=== PATIENT | female | born 1980 | race Caucasian/White ===

== ENCOUNTER 2016-07-12 11:11 | Emergency (ER) | payer BC ==
[~2016-07-12] VITALS: Ht 162.6 cm; Wt 72.7 kg
[~2016-07-12 11:11] MED LIST: AEROSOL THERAPY1 DEV INH; ALBUTEROL0.83 MG/ML IH; ALPRAZOLAM; AMBIEN 5MG TABLE5 MG PO; AMOXICILLIN 50500 MG PO; AUGMENTIN 875 M1 TAB PO; BACTRIM DS 8001 TAB PO; BACTROBAN 22GM22 GM NAS; BENADRYL25 M2 PO; BENTYL 20MG20 MG/TAB PO; BLOOD PRESSURE MED; CARAFATE 1GM1 G PO; CARAFATE S1 GM/10 ML PO; CATAPRES 0.1MG0.1 MG PO; CEPHALEXIN500 M1 PO; CLEOCIN HC150 MG/CAP PO; CLINDAMYCIN300 MG PO; COLACE 100100 MG/CAP PO; DEPO PROVER150 MG/ML IM; DEPO-ESTRADIO5 MG/ML IM; DEPO-PROVER150 MG/M1 IM; DIFLUCAN150 MG PO; FLEXERIL 1010 MG/TAB PO; FLEXERIL10 MG PO; GLUCOPHAGE500 MG/TAB PO; HCTZ 25MG25 MG PO; HYDROCODONE/APAP; IBUPROFEN600 MG PO; INDERAL 10MG10 MG PO; INDERAL 20MG20 MG PO; INDERAL40 MG PO; KLONOPIN 0.5MG0.5 MG PO; LOPRESSOR 225 MG/TAB PO; LORTAB 5/500 501 TAB PO; LORTAB 7.5/5001 TAB PO; MECLIZINE25 MG PO; METHAZOLAMIDE25 MG PO; MIRALAX PA17 GM/Dose PO; MOTRIN 800800 MG/TAB; MOTRIN800 MG PO; NAPROSYN375 MG PO; NAPROSYN500 MG PO; NO HOME MEDICATIONS; NORCO 325 MG-101 TAB PO; NORCO 325 MG-51 TAB PO; NORCO 325 MG-7.1 TAB PO; NORFLEX100 MG PO; PEN-VEE K500 MG PO; PEPCID 20MG TAB20 MG PO; PERCOCET 325 MG1 TA2 PO; PERCOCET 5/321 UDTAB PO; PHENERGAN 25 TA25 MG PO; PHENERGAN W/CO120 M1 PO; PHENERGAN W/CO120 ML PO; PHENERGAN25 MG RC; PREDNISONE10 MG; PREDNISONE10 MG PO; PREDNISONE20 MG PO; PRILOSEC 20MG20 MG PO; PRILOTC PO; PRINIVIL10 MG PO; PROZAC 10MG10 MG PO; PROZAC40 MG PO; SAPHRIS5 MG SL; SYNTHROID 0.10.15 MG PO; SYNTHROID0.125 MG/T PO; SYNTHROID0.175 MG PO; TAPAZOLE10 MG PO; TOPROL XL 25MG25 MG PO; TOPROL XL 50MG50 MG PO; TRAZODONE HCL50 MG PO; TUMS500 MG PO; TYLENOL #3 301 UDTAB PO; ULTRAM 50MG TAB50 MG PO; UNKNOWN B/P MED; VENTOLIN0.09 MG IH; XANAX 0.5MG0.5 MG PO; XANAX 1MG1 MG PO; XANAX0.5 MG PO; ZESTRIL 10MG10 MG PO; ZITHROMAX 250M250 MG PO; ZITHROMAX500 M2; ZOFRAN 4MG T4 MG/TAB PO; ZOFRAN ODT4 MG PO; ZOLOFT 50MG50 MG PO; [UNRECOGNIZED DRUG - REMARK]
[2016-07-12 11:17] VITALS: BP 169/104; TEMP 99.4
[2016-07-12 11:57] LABS: INFLUENZA B NEGATIVE
[2016-07-12 12:45] VITALS: PULSE 106
== END 2016-07-12 12:55 | disposition home or self-care (01) ==
LOC: COL.ER 11:11
PROVIDERS: Nurse Practitioner
DX: R53.81 Other malaise (principal); R53.83 Other fatigue; B34.9 Viral infection, unspecified; I10 Essential (primary) hypertension; F17.210 Nicotine dependence, cigarettes, uncomplicated; E03.9 Hypothyroidism, unspecified
CPT/HCPCS: J1885; J2360

== ENCOUNTER 2016-10-09 06:25 | Emergency (ER) | payer BC ==
[~2016-10-09] VITALS: Ht 162.6 cm; Wt 72.7 kg
[2016-10-09 06:36] VITALS: TEMP 98
[2016-10-09] MEDS ORDERED: NORCO 325 MG-51 TAB PO (06:40)
[2016-10-09] MEDS ORDERED: TURMERIC500 MG PO (06:40)
[2016-10-09] MEDS ORDERED: ZOFRAN8 MG PO (07:27)
[2016-10-09 08:08] LABS: ADJUSTED CALCIUM 8.3 mg/dL (8.4-10.2); ALBUMIN 4.2 gm/dL (3.5-5.0); BILIRUBIN,TOTAL 0.8 mg/dL (0.0-1.0); CALCIUM 8.5 mg/dL (8.4-10.2); CREATININE, serum 0.66 mg/dL (0.52-1.25); POTASSIUM 4.1 mmol/L (3.4-5.0); TOTAL PROTEIN 7.3 gm/dL (6.4-8.2)
[2016-10-09 08:33] VITALS: BP 148/98; PULSE 85
== END 2016-10-09 08:40 | disposition home or self-care (01) ==
LOC: COL.ER 06:25
PROVIDERS: Emergency Medicine
DX: E86.9 Volume depletion, unspecified (principal); R19.7 Diarrhea, unspecified; R11.2 Nausea with vomiting, unspecified; R10.84 Generalized abdominal pain; F41.9 Anxiety disorder, unspecified; F32.9 Major depressive disorder, single episode, unspecified; I10 Essential (primary) hypertension; F17.210 Nicotine dependence, cigarettes, uncomplicated
CPT/HCPCS: J1170; J1885; J2405; J7030

== ENCOUNTER 2016-11-24 13:33 | Emergency (ER) | payer BC ==
[~2016-11-24] VITALS: Ht 162.6 cm; Wt 72.7 kg
[~2016-11-24 13:33] MED LIST changes: +TURMERIC500 MG PO; +ZOFRAN8 MG PO
[2016-11-24 13:35] VITALS: BP 141/85; PULSE 107; TEMP 99.6
[2016-11-24] MEDS ORDERED: [UNRECOGNIZED DRUG - OTHER] PO (14:03)
[2016-11-24 14:51] LABS: BASO % 0.2 % (0.0-2.0); EOS % 0.2 % (0-4.0); GRAN # 11.5 (1.4-6.5); GRAN % 83.8 % (42.2-75.2); HEMATOCRIT 43.5 % (37.0-47.0); HEMOGLOBIN 15.4 g/dl (12.5-16.0); LYMPH # 1.5 (1.2-3.4); LYMPH % 10.9 % (20.0-51.0); MEAN CELL VOLUME 88 fl (80.0-100.0); MEAN CORPUSCULAR HEMOGLOBIN 31 pg (27.0-31.0); MEAN CORPUSCULAR HGB CONC 35 g/dl (33.0-37.0); MEAN PLATELET VOLUME 10.7 fl (7.4-10.4); MONO # 0.7 (0.1-0.6); MONO % 4.7 % (1.7-9.3); PLATELET COUNT 332 K/mm3 (130-400); RED BLOOD COUNT 4.92 M/mm3 (4.10-5.30); REDCELL DISTRIBUTION WIDTH-CV 13.2 % (11.5-14.5); WHITE BLOOD COUNT 13.7 K/mm3 (4.8-10.8)
[2016-11-24 15:05] LABS: ADJUSTED CALCIUM 9.1 mg/dL (8.4-10.2); ALBUMIN 4.5 gm/dL (3.5-5.0); BILIRUBIN,TOTAL 0.8 mg/dL (0.0-1.0); CALCIUM 9.5 mg/dL (8.4-10.2); CREATININE, serum 0.64 mg/dL (0.52-1.25); POTASSIUM 3.9 mmol/L (3.4-5.0); TOTAL PROTEIN 7.5 gm/dL (6.4-8.2)
[2016-11-24 15:35] LABS: THYROID STIMULATING HORMONE 6.81 uIU/mL (0.465-4.680)
[2016-11-25] MEDS ORDERED: VOLTAREN 75 DR75 MG PO (22:54)
[2016-11-25] MEDS ORDERED: ATIVAN 0.50.5 MG/TAB PO (22:54)
[2016-11-25] MEDS ORDERED: SYNTHROID 0.10.15 MG PO (22:55)
== END 2016-11-24 15:25 | disposition home or self-care (01) ==
LOC: COL.ER 13:33
PROVIDERS: Nurse Practitioner
DX: R55 Syncope and collapse (principal); R10.2 Pelvic and perineal pain; R11.0 Nausea; I10 Essential (primary) hypertension; E05.00 Thyrotoxicosis with diffuse goiter without thyrotoxic crisis or storm; F17.210 Nicotine dependence, cigarettes, uncomplicated; E28.2 Polycystic ovarian syndrome
CPT/HCPCS: J1885; J2405; J7030

== ENCOUNTER 2016-11-25 21:50 | Emergency (ER) | payer BC ==
[~2016-11-25] VITALS: Ht 162.6 cm; Wt 72.7 kg
[~2016-11-25 21:50] MED LIST changes: +[UNRECOGNIZED DRUG - OTHER] PO
[2016-11-25 21:58] VITALS: TEMP 98.7
[2016-11-25 22:48] LABS: PH 5 (5-8); SQUAMOUS EPITHELIAL 0-2 /hpf; URINE APPEARANCE Clear; URINE BACTERIA None Seen /hpf; URINE BILIRUBIN Negative (NEGATIVE); URINE BLOOD Negative (NEGATIVE); URINE COLOR Yellow; URINE GLUCOSE Negative (NEGATIVE); URINE KETONE Negative (NEGATIVE); URINE RBC 0-2 /hpf
[2016-11-25] MEDS ORDERED: ATIVAN 0.50.5 MG/TAB PO (22:54)
[2016-11-25] MEDS ORDERED: VOLTAREN 75 DR75 MG PO (22:54)
[2016-11-25] MEDS ORDERED: SYNTHROID 0.10.15 MG PO (22:55)
[2016-11-25 23:10] VITALS: BP 160/92; PULSE 94
== END 2016-11-25 23:11 | disposition home or self-care (01) ==
LOC: COL.ER 21:50
PROVIDERS: Emergency Medicine
DX: F41.9 Anxiety disorder, unspecified (principal); N94.6 Dysmenorrhea, unspecified; I10 Essential (primary) hypertension; E03.9 Hypothyroidism, unspecified; M19.90 Unspecified osteoarthritis, unspecified site; F17.210 Nicotine dependence, cigarettes, uncomplicated; F12.99 Cannabis use, unspecified with unspecified cannabis-induced disorder; Z90.49 Acquired absence of other specified parts of digestive tract; Z98.890 Other specified postprocedural states; Z98.818 Other dental procedure status
CPT/HCPCS: J1885

== ENCOUNTER 2017-04-08 10:01 | Emergency (ER) | payer BC ==
[~2017-04-08] VITALS: Ht 162.6 cm; Wt 72.7 kg
[~2017-04-08 10:01] MED LIST changes: +ATIVAN 0.50.5 MG/TAB PO; +VOLTAREN 75 DR75 MG PO
[2017-04-08 10:02] VITALS: TEMP 98.1
[2017-04-08 10:49] LABS: COLLECTION METHOD CLEAN CATCH
[2017-04-08 11:07] LABS: MUCOUS Present /lpf; PH 5 (5-8); URINE APPEARANCE Hazy; URINE BACTERIA Rare /hpf; URINE BILIRUBIN Negative (NEGATIVE); URINE BLOOD 2+ (NEGATIVE); URINE COLOR Amber; URINE GLUCOSE Negative (NEGATIVE); URINE KETONE Negative (NEGATIVE); URINE LEUKOCYTE ESTERASE 3+ (NEGATIVE); URINE PROTEIN(semi-quant) 2+ (NEGATIVE); URINE RBC 20-50 /hpf; URINE WBC 20-50 /hpf
[2017-04-08 11:10] LABS: BASO % 0.3 % (0.0-2.0); EOS % 0.3 % (0-4.0); GRAN # 6.2 (1.4-6.5); GRAN % 71.7 % (42.2-75.2); HEMOGLOBIN 15.8 g/dl (12.5-16.0); LYMPH # 1.8 (1.2-3.4); LYMPH % 21.2 % (20.0-51.0); MEAN CELL VOLUME 93 fl (80.0-100.0); MEAN CORPUSCULAR HEMOGLOBIN 31 pg (27.0-31.0); MEAN CORPUSCULAR HGB CONC 34 g/dl (33.0-37.0); MEAN PLATELET VOLUME 10.3 fl (7.4-10.4); MONO # 0.5 (0.1-0.6); MONO % 6.2 % (1.7-9.3); PLATELET COUNT 322 K/mm3 (130-400); RED BLOOD COUNT 5.07 M/mm3 (4.10-5.30); WHITE BLOOD COUNT 8.7 K/mm3 (4.8-10.8)
[2017-04-08 11:22] LABS: ADJUSTED CALCIUM 8.3 mg/dL (8.4-10.2); ALBUMIN 5.5 gm/dL (3.5-5.0); BILIRUBIN,TOTAL 0.7 mg/dL (0.0-1.0); CALCIUM 9.5 mg/dL (8.4-10.2); CREATININE, serum 0.71 mg/dL (0.52-1.25); POTASSIUM 3.3 mmol/L (3.4-5.0)
[2017-04-08] MEDS ORDERED: OMNICEF 300MG300 MG PO (12:25)
[2017-04-08 12:33] VITALS: BP 174/106; PULSE 88
== END 2017-04-08 12:35 | disposition home or self-care (01) ==
LOC: COL.ER 10:01
PROVIDERS: Physician Assistant
DX: N39.0 Urinary tract infection, site not specified (principal); N12 Tubulo-interstitial nephritis, not specified as acute or chronic; E03.9 Hypothyroidism, unspecified; I10 Essential (primary) hypertension; F17.210 Nicotine dependence, cigarettes, uncomplicated
CPT/HCPCS: J0696; J1170; J2405; J7030

== ENCOUNTER 2017-05-20 09:58 | Emergency (ER) | payer BC ==
[~2017-05-20] VITALS: Ht 162.6 cm; Wt 72.7 kg
[~2017-05-20 09:58] MED LIST changes: +OMNICEF 300MG300 MG PO
[2017-05-20 10:00] VITALS: TEMP 98.6
[2017-05-20 10:44] LABS: COLLECTION METHOD CATHETER
[2017-05-20 10:50] LABS: BASO # 0.1 (0.0-0.2); BASO % 0.4 % (0.0-2.0); EOS # 0.1 (0.0-0.7); EOS % 0.6 % (0-4.0); GRAN # 12.1 (1.4-6.5); GRAN % 80.4 % (42.2-75.2); HEMATOCRIT 42.3 % (37.0-47.0); HEMOGLOBIN 14.1 g/dl (12.5-16.0); LYMPH # 1.9 (1.2-3.4); LYMPH % 12.5 % (20.0-51.0); MEAN CELL VOLUME 94 fl (80.0-100.0); MEAN CORPUSCULAR HEMOGLOBIN 31 pg (27.0-31.0); MEAN CORPUSCULAR HGB CONC 33 g/dl (33.0-37.0); MEAN PLATELET VOLUME 10.1 fl (7.4-10.4); MONO # 0.9 (0.1-0.6); MONO % 5.8 % (1.7-9.3); PLATELET COUNT 439 K/mm3 (130-400); RED BLOOD COUNT 4.51 M/mm3 (4.10-5.30); WHITE BLOOD COUNT 15.1 K/mm3 (4.8-10.8)
[2017-05-20 10:56] LABS: MUCOUS Present /lpf; PH 5 (5-8); URINE APPEARANCE Hazy; URINE BACTERIA None Seen /hpf; URINE BILIRUBIN Negative (NEGATIVE); URINE BLOOD 3+ (NEGATIVE); URINE COLOR Yellow; URINE GLUCOSE Negative (NEGATIVE); URINE KETONE Negative (NEGATIVE); URINE LEUKOCYTE ESTERASE 1+ (NEGATIVE); URINE PROTEIN(semi-quant) 2+ (NEGATIVE)
[2017-05-20 10:59] LABS: ADJUSTED CALCIUM 8.5 mg/dL (8.4-10.2); ALBUMIN 4.9 gm/dL (3.5-5.0); BILIRUBIN,TOTAL 0.6 mg/dL (0.0-1.0); C-REACTIVE PROTEIN 3.5 mg/dL (0.0-0.9); CALCIUM 9.2 mg/dL (8.4-10.2); CREATININE, serum 0.61 mg/dL (0.52-1.25); POTASSIUM 3.5 mmol/L (3.4-5.0); TOTAL PROTEIN 8.2 gm/dL (6.4-8.2)
[2017-05-20 11:42] LABS: COLLECTION METHOD CATHETER
[2017-05-20 11:50] LABS: PH 6 (5-8); SQUAMOUS EPITHELIAL 0-2 /hpf; URINE APPEARANCE Clear; URINE BACTERIA None Seen /hpf; URINE BILIRUBIN Negative (NEGATIVE); URINE BLOOD Negative (NEGATIVE); URINE COLOR Straw; URINE GLUCOSE Negative (NEGATIVE); URINE KETONE Negative (NEGATIVE); URINE LEUKOCYTE ESTERASE Negative (NEGATIVE); URINE PROTEIN(semi-quant) Negative (NEGATIVE); URINE RBC 0-2 /hpf; URINE UROBILINOGEN Negative (NEGATIVE); URINE WBC 0-2 /hpf
[2017-05-20] MEDS ORDERED: AMOXICILLIN 8751 TAB PO (13:45)
[2017-05-20 14:39] VITALS: BP 143/98; PULSE 77
== END 2017-05-20 14:48 | disposition home or self-care (01) ==
LOC: COL.ER 09:58
PROVIDERS: Physician Assistant
DX: G89.18 Other acute postprocedural pain (principal); I10 Essential (primary) hypertension; E03.9 Hypothyroidism, unspecified; Z90.710 Acquired absence of both cervix and uterus; Z90.49 Acquired absence of other specified parts of digestive tract; F17.210 Nicotine dependence, cigarettes, uncomplicated
CPT/HCPCS: J0696; J1170; J2405; J7030; J7050; Q9967

== ENCOUNTER → 2017-07-12 | Outpatient (CLI) | payer BC ==
[~2017-07-12] MED LIST changes: +AMOXICILLIN 8751 TAB PO
== END ==
LOC: BHSO 09:17
DX: F11.20 Opioid dependence, uncomplicated (principal)
CPT/HCPCS: G0463

== ENCOUNTER 2017-09-28 06:32 | Emergency (ER) | payer BC ==
[~2017-09-28] VITALS: Ht 162.6 cm; Wt 68.2 kg
[2017-09-28] MEDS ORDERED: SYNTHROID 0.0.025 MG PO (07:30)
[2017-09-28] MEDS ORDERED: NEURONTIN300 MG/CAP PO (07:36)
[2017-09-28 07:38] VITALS: BP 161/113; PULSE 93; TEMP 98.2
[2017-09-28] MEDS ORDERED: ATIVAN 1MG T1 MG/TAB PO (09:11)
[2017-09-28] MEDS ORDERED: FLEXERIL 1010 MG/TAB PO (09:11)
== END 2017-09-28 09:57 | disposition home or self-care (01) ==
LOC: COL.ER 06:32
DX: S46.812A Strain of other muscles, fascia and tendons at shoulder and upper arm level, left arm, initial encounter (principal); F32.9 Major depressive disorder, single episode, unspecified; F41.9 Anxiety disorder, unspecified; Z88.6 Allergy status to analgesic agent; X50.0XXA Overexertion from strenuous movement or load, initial encounter
CPT/HCPCS: J1885; J2060; J2360

== ENCOUNTER 2017-10-01 16:31 | Emergency (ER) | payer BC ==
[~2017-10-01] VITALS: Ht 162.6 cm; Wt 69.5 kg
[~2017-10-01 16:31] MED LIST changes: +ATIVAN 1MG T1 MG/TAB PO; +NEURONTIN300 MG/CAP PO; +SYNTHROID 0.0.025 MG PO
[2017-10-01 16:36] VITALS: BP 119/82; PULSE 104; TEMP 98.4
[2017-10-01] MEDS ORDERED: NORCO 325 MG-51 TAB PO (18:43)
== END 2017-10-01 18:52 | disposition home or self-care (01) ==
LOC: COL.ER 16:31
DX: M25.512 Pain in left shoulder (principal); F41.9 Anxiety disorder, unspecified; F17.210 Nicotine dependence, cigarettes, uncomplicated; Z90.710 Acquired absence of both cervix and uterus

== ENCOUNTER 2017-10-08 20:46 | Emergency (ER) | payer BC ==
[~2017-10-08] VITALS: Ht 162.6 cm; Wt 68.2 kg
[2017-10-08 20:49] VITALS: TEMP 98.4
[2017-10-08] MEDS ORDERED: PRINIVIL10 MG PO (21:07)
[2017-10-08] MEDS ORDERED: VOLTAREN 75 DR75 MG PO (21:57)
[2017-10-08 22:10] VITALS: BP 152/94; PULSE 92
== END 2017-10-08 22:11 | disposition home or self-care (01) ==
LOC: COL.ER 20:46
DX: M25.512 Pain in left shoulder (principal); M54.2 Cervicalgia; E03.9 Hypothyroidism, unspecified
CPT/HCPCS: J1200; J1630; J1885; J2930; J7050

== ENCOUNTER 2017-10-21 10:34 | Emergency (ER) | payer BC ==
[~2017-10-21] VITALS: Ht 162.6 cm; Wt 65.9 kg
[2017-10-21 10:39] VITALS: BP 178/117; PULSE 103; TEMP 97.1
[2017-10-21] MEDS ORDERED: ARMOUR THYROID30 MG PO (11:17)
== END 2017-10-21 12:55 | disposition home or self-care (01) ==
LOC: COL.ER 10:34
DX: M25.512 Pain in left shoulder (principal); Z90.710 Acquired absence of both cervix and uterus; F17.210 Nicotine dependence, cigarettes, uncomplicated
CPT/HCPCS: J1885

== ENCOUNTER 2017-12-31 11:15 | Emergency (ER) | payer SELFPAY ==
[~2017-12-31] VITALS: Ht 162.6 cm; Wt 72.7 kg
[~2017-12-31 11:15] MED LIST changes: +ARMOUR THYROID30 MG PO
[2017-12-31 11:19] VITALS: BP 141/91; PULSE 96; TEMP 98.6
== END 2017-12-31 12:29 | disposition home or self-care (01) ==
LOC: COL.ER 11:15
DX: S93.402A Sprain of unspecified ligament of left ankle, initial encounter (principal); E03.9 Hypothyroidism, unspecified; F17.210 Nicotine dependence, cigarettes, uncomplicated; Z88.4 Allergy status to anesthetic agent; W06.XXXA Fall from bed, initial encounter; Y92.009 Unspecified place in unspecified non-institutional (private) residence as the place of occurrence of the external cause

== ENCOUNTER → 2018-01-08 | Outpatient (CLI) | payer SELFPAY | LOC: BHSO 09:01 | DX: F31.81 Bipolar II disorder (principal) | CPT/HCPCS: G0463 ==

== ENCOUNTER 2018-01-15 13:45 | Emergency (ER) | payer SELFPAY ==
[~2018-01-15] VITALS: Ht 162.6 cm; Wt 72.7 kg
[2018-01-15 13:49] VITALS: PULSE 109; TEMP 98.9
[2018-01-15 14:59] VITALS: BP 164/100
== END 2018-01-15 15:00 | disposition home or self-care (01) ==
LOC: COL.ER 13:45
DX: S93.402A Sprain of unspecified ligament of left ankle, initial encounter (principal); E03.9 Hypothyroidism, unspecified; F17.210 Nicotine dependence, cigarettes, uncomplicated; Z90.710 Acquired absence of both cervix and uterus; Z96.22 Myringotomy tube(s) status; Z90.89 Acquired absence of other organs; X50.0XXA Overexertion from strenuous movement or load, initial encounter; Y92.009 Unspecified place in unspecified non-institutional (private) residence as the place of occurrence of the external cause

== ENCOUNTER 2018-04-25 13:55 | Emergency (ER) | payer SELFPAY ==
[~2018-04-25] VITALS: Ht 162.6 cm; Wt 81.8 kg
[2018-04-25 14:14] VITALS: BP 187/106; PULSE 106; TEMP 98.8
== END 2018-04-25 15:16 | disposition left against medical advice (07) ==
LOC: COL.ER 13:55
DX: M54.5 Low back pain (principal); M25.551 Pain in right hip; M25.552 Pain in left hip; R20.2 Paresthesia of skin; W18.30XA Fall on same level, unspecified, initial encounter

== ENCOUNTER 2018-05-11 15:24 | Emergency (ER) | payer SELFPAY ==
[~2018-05-11] VITALS: Ht 162.6 cm; Wt 81.8 kg
[2018-05-11 15:26] VITALS: BP 125/77; TEMP 98.8
[2018-05-11] MEDS ORDERED: CATAPRES 0.1MG0.1 MG PO (15:41)
[2018-05-11] MEDS ORDERED: AMOXICILLIN 50500 MG PO (15:47)
[2018-05-11 15:59] VITALS: PULSE 98
== END 2018-05-11 16:00 | disposition home or self-care (01) ==
LOC: COL.ER 15:24
DX: J01.90 Acute sinusitis, unspecified (principal); E03.9 Hypothyroidism, unspecified; E28.2 Polycystic ovarian syndrome; F17.210 Nicotine dependence, cigarettes, uncomplicated; Z90.710 Acquired absence of both cervix and uterus

== ENCOUNTER 2018-05-13 12:51 | Emergency (ER) | payer SELFPAY ==
[~2018-05-13] VITALS: Ht 162.6 cm; Wt 81.8 kg
[2018-05-13 12:57] VITALS: TEMP 99.3
[2018-05-13 15:13] VITALS: BP 154/90; PULSE 79
== END 2018-05-13 15:14 | disposition home or self-care (01) ==
LOC: COL.ER 12:51
DX: J32.9 Chronic sinusitis, unspecified (principal); Z88.5 Allergy status to narcotic agent
CPT/HCPCS: J0696

== ENCOUNTER 2018-06-07 10:31 | Emergency (ER) | payer SELFPAY ==
[~2018-06-07] VITALS: Ht 162.6 cm; Wt 80.9 kg
[~2018-06-07 10:31] MED LIST changes: -NEURONTIN300 MG/CAP PO; +NEURONTIN800 MG/TAB PO
[2018-06-07 10:37] VITALS: TEMP 99
[2018-06-07] MEDS ORDERED: PRINZIDE 25 MG-1 TAB PO (10:51)
[2018-06-07] MEDS ORDERED: NORVASC 5MG5 MG/TAB PO (14:09)
[2018-06-07] MEDS ORDERED: PREDNISONE20 MG PO (14:09)
[2018-06-07] MEDS ORDERED: FLEXERIL 1010 MG/TAB PO (14:09)
[2018-06-07 14:47] VITALS: BP 173/114; PULSE 95
== END 2018-06-07 14:47 | disposition home or self-care (01) ==
LOC: COL.ER 10:31
DX: M54.2 Cervicalgia (principal); I10 Essential (primary) hypertension; F41.9 Anxiety disorder, unspecified; F17.210 Nicotine dependence, cigarettes, uncomplicated; Z90.49 Acquired absence of other specified parts of digestive tract; Z90.710 Acquired absence of both cervix and uterus; Z88.5 Allergy status to narcotic agent
CPT/HCPCS: J1885; J2060; J7030; J7512

== ENCOUNTER 2018-08-07 08:22 | Emergency (ER) | payer SELFPAY ==
[~2018-08-07] VITALS: Ht 162.6 cm; Wt 81.8 kg
[~2018-08-07 08:22] MED LIST changes: +NORVASC 5MG5 MG/TAB PO; +PRINZIDE 25 MG-1 TAB PO
[2018-08-07 08:30] VITALS: TEMP 98.4
[2018-08-07 09:15] LABS: BASO # 0.1 (0.0-0.2); BASO % 0.5 % (0.0-2.0); EOS # 0.1 (0.0-0.7); EOS % 1.1 % (0-4.0); GRAN # 6.8 (1.4-6.5); GRAN % 68.2 % (42.2-75.2); HEMATOCRIT 41.8 % (37.0-47.0); HEMOGLOBIN 14.3 g/dl (12.5-16.0); LYMPH # 2.4 (1.2-3.4); LYMPH % 23.8 % (20.0-51.0); MEAN CELL VOLUME 92 fl (80.0-100.0); MEAN CORPUSCULAR HEMOGLOBIN 31 pg (27.0-31.0); MEAN CORPUSCULAR HGB CONC 34 g/dl (33.0-37.0); MEAN PLATELET VOLUME 10.5 fl (7.4-10.4); MONO # 0.6 (0.1-0.6); MONO % 6.2 % (1.7-9.3); PLATELET COUNT 287 K/mm3 (130-400); RED BLOOD COUNT 4.56 M/mm3 (4.10-5.30); REDCELL DISTRIBUTION WIDTH-CV 13.5 % (11.5-14.5)
[2018-08-07 09:23] LABS: ALBUMIN 4.2 gm/dL (3.5-5.0); BILIRUBIN,TOTAL 0.2 mg/dL (0.0-1.0); C-REACTIVE PROTEIN 1.2 mg/dL (0.0-0.9); CALCIUM 8.9 mg/dL (8.4-10.2); CREATININE, serum 0.66 mg/dL (0.52-1.25); POTASSIUM 3.6 mmol/L (3.4-5.0); TOTAL PROTEIN 7.4 gm/dL (6.4-8.2)
[2018-08-07 10:47] LABS: COLLECTION METHOD CLEAN CATCH
[2018-08-07 10:58] VITALS: BP 169/109; PULSE 99
[2018-08-07 11:07] LABS: PH 7 (5-8); URINE APPEARANCE Clear; URINE COLOR Colorless
[2018-08-07 11:08] LABS: URINE BILIRUBIN Negative (NEGATIVE); URINE BLOOD Negative (NEGATIVE); URINE GLUCOSE Negative (NEGATIVE); URINE KETONE Negative (NEGATIVE); URINE LEUKOCYTE ESTERASE Negative (NEGATIVE); URINE NITRATE Negative (NEGATIVE); URINE PROTEIN(semi-quant) Negative (NEGATIVE); URINE UROBILINOGEN Negative (NEGATIVE)
[2018-08-07 11:10] LABS: SQUAMOUS EPITHELIAL 0-2 /hpf; URINE BACTERIA Rare /hpf; URINE RBC None Seen /hpf
== END 2018-08-07 11:05 | disposition home or self-care (01) ==
LOC: COL.ER 08:22
PROVIDERS: Nurse Practitioner
DX: R10.32 Left lower quadrant pain (principal); I10 Essential (primary) hypertension; F41.9 Anxiety disorder, unspecified; F17.210 Nicotine dependence, cigarettes, uncomplicated; Z90.710 Acquired absence of both cervix and uterus; Z90.49 Acquired absence of other specified parts of digestive tract
CPT/HCPCS: J7030; Q9967

== ENCOUNTER 2019-03-06 07:28 | Emergency (ER) | payer SELFPAY ==
[~2019-03-06] VITALS: Ht 162.6 cm; Wt 81.8 kg
[2019-03-06 07:32] VITALS: TEMP 98.8
[2019-03-06 07:56] LABS: BASO # 0.1 (0.0-0.2); BASO % 0.7 % (0.0-2.0); EOS # 0.1 (0.0-0.7); EOS % 1.3 % (0-4.0); GRAN % 66.9 % (42.2-75.2); HEMATOCRIT 46.4 % (37.0-47.0); HEMOGLOBIN 15.1 g/dl (12.5-16.0); LYMPH % 22.3 % (20.0-51.0); MEAN CELL VOLUME 93 fl (80.0-100.0); MEAN CORPUSCULAR HEMOGLOBIN 30 pg (27.0-31.0); MEAN CORPUSCULAR HGB CONC 33 g/dl (33.0-37.0); MEAN PLATELET VOLUME 10.7 fl (7.4-10.4); MONO # 0.8 (0.1-0.6); MONO % 8.5 % (1.7-9.3); PLATELET COUNT 324 K/mm3 (130-400); RED BLOOD COUNT 4.97 M/mm3 (4.10-5.30); REDCELL DISTRIBUTION WIDTH-CV 14.1 % (11.5-14.5)
[2019-03-06 08:07] LABS: ALANINE AMINOTRANSFERASE 31 U/L (9-52); ALBUMIN 4.5 gm/dL (3.5-5.0); ALKALINE PHOSPHATASE 77 U/L (50-136); ANION GAP 9 mmol/L (7-16); AST,SGOT 25 U/L (15-37); BILIRUBIN,TOTAL 0.3 mg/dL (0.0-1.0); BLOOD UREA NITROGEN 16 mg/dL (7-17); CALCIUM 8.8 mg/dL (8.4-10.2); CARBON DIOXIDE 22 mmol/L (22-30); CHLORIDE 108 mmol/L (98-107); CREATININE, serum 0.83 (0.52-1.25); GLUCOSE 97 mg/dL (74-106); LIPASE 225 U/L (23-300); POTASSIUM 4.2 mmol/L (3.4-5.0); SODIUM 138 mmol/L (137-145); TOTAL PROTEIN 7.9 gm/dL (6.4-8.2)
[2019-03-06 08:19] LABS: TROPONIN-I < 0.012 ng/mL (0.000-0.035)
[2019-03-06 09:49] LABS: TSH w REFLEX 29.5 uIU/mL (0.465-4.680)
[2019-03-06] MEDS ORDERED: NEURONTIN800 MG/TAB PO (10:05)
[2019-03-06] MEDS ORDERED: TOPROL XL 25MG25 MG PO (10:10)
[2019-03-06] MEDS ORDERED: SYNTHROID 0.10.15 MG PO (10:10)
[2019-03-06 10:41] VITALS: BP 154/104; PULSE 81
== END 2019-03-06 10:43 | disposition home or self-care (01) ==
LOC: COL.ER 07:28
PROVIDERS: Emergency Medicine
DX: R00.2 Palpitations (principal); I10 Essential (primary) hypertension; E03.9 Hypothyroidism, unspecified
CPT/HCPCS: J7030

== ENCOUNTER 2019-05-21 10:38 | Emergency (ER) | payer SELFPAY ==
[~2019-05-21] VITALS: Ht 162.6 cm; Wt 90.7 kg
[2019-05-21 11:08] VITALS: BP 182/99; PULSE 86; TEMP 98.9
== END 2019-05-21 12:00 | disposition left against medical advice (07) ==
LOC: COL.ER 10:38
DX: R11.2 Nausea with vomiting, unspecified (principal); R19.7 Diarrhea, unspecified; R50.9 Fever, unspecified; R52 Pain, unspecified

== ENCOUNTER 2019-07-07 20:24 | Emergency (ER) | payer SELFPAY ==
[2019-07-07 20:46] VITALS: TEMP 98
[2019-07-07 21:11] LABS: HEMATOCRIT 42.6 % (37.0-47.0); HEMOGLOBIN 14.4 g/dl (12.5-16.0); MEAN CELL VOLUME 91 fl (80.0-100.0); MEAN CORPUSCULAR HEMOGLOBIN 31 pg (27.0-31.0); MEAN CORPUSCULAR HGB CONC 34 g/dl (33.0-37.0); MEAN PLATELET VOLUME 10.9 fl (7.4-10.4); PLATELET COUNT 342 K/mm3 (130-400); RED BLOOD COUNT 4.68 M/mm3 (4.10-5.30); REDCELL DISTRIBUTION WIDTH-CV 14.6 % (11.5-14.5)
[2019-07-07 21:28] LABS: ALANINE AMINOTRANSFERASE 51 U/L (9-52); ALBUMIN 4.6 gm/dL (3.5-5.0); ALKALINE PHOSPHATASE 86 U/L (50-136); ANION GAP 11 mmol/L (7-16); AST,SGOT 35 U/L (15-37); BILIRUBIN,TOTAL 0.4 mg/dL (0.0-1.0); BLOOD UREA NITROGEN 13 mg/dL (7-17); CALCIUM 8.8 mg/dL (8.4-10.2); CARBON DIOXIDE 23 mmol/L (22-30); CHLORIDE 105 mmol/L (98-107); CREATININE, serum 0.89 (0.52-1.25); GLUCOSE 134 mg/dL (74-106); POTASSIUM 3.8 mmol/L (3.4-5.0); SODIUM 138 mmol/L (137-145); TOTAL PROTEIN 7.7 gm/dL (6.4-8.2)
[2019-07-07 21:32] LABS: C-REACTIVE PROTEIN < 0.5 mg/dL (0.0-0.9)
[2019-07-07 21:38] LABS: ANISOCYTOSIS 1+; BAND 1 % (0-10); EOSINOPHIL 2 % (0-4); LYMPHOCYTE 47 % (20.0-51.0); NEUTROPHILS 47 % (42.0-75.2); PLATELET ESTIMATE NORMAL (NORMAL)
[2019-07-07 21:39] LABS: TROPONIN-I < 0.012 ng/mL (0.000-0.035)
[2019-07-07] MEDS ORDERED: TAMBOCOR50 MG PO (22:53)
[2019-07-07 23:01] VITALS: BP 132/88; PULSE 80
== END 2019-07-07 23:06 | disposition home or self-care (01) ==
LOC: COL.ER 20:24
PROVIDERS: Emergency Medicine
DX: I47.1 Supraventricular tachycardia (principal); E03.9 Hypothyroidism, unspecified; F17.210 Nicotine dependence, cigarettes, uncomplicated

== ENCOUNTER 2019-07-08 01:21 | Emergency (ER) | payer SELFPAY ==
[~2019-07-08] VITALS: Ht 162.6 cm; Wt 90.9 kg
[~2019-07-08 01:21] MED LIST changes: +TAMBOCOR50 MG PO
[2019-07-08 05:26] VITALS: BP 103/72; PULSE 69; TEMP 98.4
== END 2019-07-08 05:33 | disposition home or self-care (01) ==
LOC: COL.ER 01:21
DX: I47.1 Supraventricular tachycardia (principal); F17.210 Nicotine dependence, cigarettes, uncomplicated; Z90.89 Acquired absence of other organs
CPT/HCPCS: J0153; J2405; J7030

== ENCOUNTER 2019-07-27 07:54 | Outpatient (CLI) | payer SELFPAY ==
[~2019-07-27] VITALS: Ht 162.6 cm; Wt 89.0 kg
[2019-07-27 08:30] VITALS: BP 152/93; PULSE 65; TEMP 98.5
[2019-07-27] MEDS ORDERED: LOPRESSOR 550 MG/TAB PO (08:36)
[2019-07-27] MEDS ORDERED: TAMBOCOR 1100 MG/TAB PO (08:36)
[2019-07-27] MEDS ORDERED: SYNTHROID0.137 MG PO (08:37)
[2019-07-27] MEDS ORDERED: CEPHALEXIN500 M1 PO (09:40)
--- NOTE | 2019-07-27 10:35 | NUR ---
Report received from KESHIA Saleh.Dressing observed clean,dry,intact.
[2019-07-27 10:40] VITALS: BP 151/104; PULSE 80
--- NOTE | 2019-07-27 10:49 | NUR ---
Discharge instructions given to pt.Pt verbalizes understanding.Pt escorted out by this nurse.
[2019-07-27 10:58] VITALS: BP 151/104; PULSE 80
== END 2019-07-27 10:58 | disposition home or self-care (01) ==
LOC: COL.CAR 07:54
DX: I47.1 Supraventricular tachycardia (principal); R55 Syncope and collapse; I10 Essential (primary) hypertension; K21.9 Gastro-esophageal reflux disease without esophagitis; E05.90 Thyrotoxicosis, unspecified without thyrotoxic crisis or storm; E66.9 Obesity, unspecified; E28.2 Polycystic ovarian syndrome; G62.9 Polyneuropathy, unspecified; F41.9 Anxiety disorder, unspecified; F32.9 Major depressive disorder, single episode, unspecified; F17.210 Nicotine dependence, cigarettes, uncomplicated; Z90.89 Acquired absence of other organs; Z68.31 Body mass index [BMI] 31.0-31.9, adult; Z90.49 Acquired absence of other specified parts of digestive tract; Z90.710 Acquired absence of both cervix and uterus; Z88.5 Allergy status to narcotic agent; Z79.899 Other long term (current) drug therapy; Z80.3 Family history of malignant neoplasm of breast; Z80.41 Family history of malignant neoplasm of ovary; Z82.61 Family history of arthritis; Z82.3 Family history of stroke

== ENCOUNTER → 2019-08-04 | Outpatient (CLI) | payer SELFPAY ==
[~2019-08-04] VITALS: Ht 162.8 cm; Wt 87.9 kg
[~2019-08-04] MED LIST changes: +LOPRESSOR 550 MG/TAB PO; +SYNTHROID0.137 MG PO; +TAMBOCOR 1100 MG/TAB PO
[2019-08-04 07:46] VITALS: PULSE 84
--- NOTE | 2019-08-04 08:02 | NUR ---
pt is ready for the fatoumata scan. int #22 in lac. pt to echo
[2019-08-04 09:28] VITALS: BP 150/84; PULSE 70
[2019-08-04 09:37] VITALS: BP 142/92; PULSE 117
[2019-08-04 09:38] VITALS: BP 156/86; PULSE 109
[2019-08-04 09:39] VITALS: BP 146/88; PULSE 100
== END ==
LOC: COL.VAS 07:25 → COL.CARD 09:15
DX: I47.1 Supraventricular tachycardia (principal)
CPT/HCPCS: A9500; J2785

== ENCOUNTER → 2019-11-06 | Outpatient (CLI) | payer SELFPAY | LOC: COL.RAD 13:33 | DX: M21.372 Foot drop, left foot (principal); M48.061 Spinal stenosis, lumbar region without neurogenic claudication; M51.17 Intervertebral disc disorders with radiculopathy, lumbosacral region; M47.817 Spondylosis without myelopathy or radiculopathy, lumbosacral region ==

== ENCOUNTER → 2020-03-03 | Emergency (ER) | payer SELFPAY ==
[~2020-03-03] VITALS: Ht 162.6 cm; Wt 81.8 kg
[2020-03-03 11:28] LABS: COLLECTION METHOD CLEAN CATCH
[2020-03-03 11:32] LABS: BASO % 0.3 % (0.0-2.0); EOS # 0.1 (0.0-0.7); GRAN # 6.2 (1.4-6.5); GRAN % 67.5 % (42.2-75.2); HEMATOCRIT 45.3 % (37.0-47.0); HEMOGLOBIN 15.6 g/dl (12.5-16.0); LYMPH # 2.1 (1.2-3.4); LYMPH % 22.7 % (20.0-51.0); MEAN CELL VOLUME 91 fl (80.0-100.0); MEAN CORPUSCULAR HEMOGLOBIN 31 pg (27.0-31.0); MEAN CORPUSCULAR HGB CONC 34 g/dl (33.0-37.0); MEAN PLATELET VOLUME 10.8 fl (7.4-10.4); MONO # 0.8 (0.1-0.6); MONO % 8.3 % (1.7-9.3); PLATELET COUNT 342 K/mm3 (130-400); RED BLOOD COUNT 4.99 M/mm3 (4.10-5.30); REDCELL DISTRIBUTION WIDTH-CV 14.1 % (11.5-14.5)
[2020-03-03 11:44] LABS: PH 6 (5-8); SQUAMOUS EPITHELIAL 0-2 /hpf; URINE APPEARANCE Clear; URINE BACTERIA Rare /hpf; URINE BILIRUBIN Negative (NEGATIVE); URINE BLOOD Negative (NEGATIVE); URINE COLOR Straw; URINE GLUCOSE Negative (NEGATIVE); URINE KETONE Negative (NEGATIVE); URINE LEUKOCYTE ESTERASE Negative (NEGATIVE); URINE NITRATE Negative (NEGATIVE); URINE PROTEIN(semi-quant) Negative (NEGATIVE); URINE RBC 0-2 /hpf; URINE UROBILINOGEN Negative (NEGATIVE)
[2020-03-03 11:46] LABS: ALANINE AMINOTRANSFERASE 63 U/L (4-34); ALBUMIN 4.6 gm/dL (3.5-5.0); ALKALINE PHOSPHATASE 102 U/L (50-136); ANION GAP 10 mmol/L (7-16); AST,SGOT 33 U/L (15-37); BILIRUBIN,TOTAL 0.4 mg/dL (0.0-1.0); BLOOD UREA NITROGEN 13 mg/dL (7-17); CALCIUM 9.1 mg/dL (8.4-10.2); CARBON DIOXIDE 22 mmol/L (22-30); CHLORIDE 106 mmol/L (98-107); CREATININE, serum 0.76 (0.52-1.25); GLUCOSE 87 mg/dL (74-106); POTASSIUM 3.9 mmol/L (3.4-5.0); SODIUM 138 mmol/L (137-145); TOTAL PROTEIN 8.1 gm/dL (6.4-8.2)
[2020-03-03 11:47] LABS: C-REACTIVE PROTEIN < 0.5 mg/dL (0.0-0.9)
[2020-03-03 12:13] LABS: TSH w REFLEX 0.231 uIU/mL (0.465-4.680)
[2020-03-03 14:43] VITALS: BP 166/90; PULSE 81; TEMP 98.9
== END ==
LOC: COL.ER 10:06
PROVIDERS: Nurse Practitioner Primary Care
DX: R53.81 Other malaise (principal); I10 Essential (primary) hypertension; R19.7 Diarrhea, unspecified; F17.210 Nicotine dependence, cigarettes, uncomplicated; Z20.828 Contact with and (suspected) exposure to other viral communicable diseases; Z90.710 Acquired absence of both cervix and uterus; Z90.49 Acquired absence of other specified parts of digestive tract; Z88.6 Allergy status to analgesic agent
CPT/HCPCS: J1885; J2405; J7030

== ENCOUNTER 2020-03-10 08:25 | Emergency (ER) | payer SELFPAY ==
[~2020-03-10] VITALS: Ht 162.6 cm; Wt 77.3 kg
[2020-03-10 08:29] VITALS: TEMP 98.7
[2020-03-10 09:09] LABS: BASO # 0.1 (0.0-0.2); BASO % 0.4 % (0.0-2.0); EOS # 0.1 (0.0-0.7); EOS % 1.1 % (0-4.0); GRAN # 8.8 (1.4-6.5); GRAN % 78.1 % (42.2-75.2); HEMATOCRIT 43.3 % (37.0-47.0); HEMOGLOBIN 14.8 g/dl (12.5-16.0); LYMPH # 1.7 (1.2-3.4); MEAN CELL VOLUME 90 fl (80.0-100.0); MEAN CORPUSCULAR HEMOGLOBIN 31 pg (27.0-31.0); MEAN CORPUSCULAR HGB CONC 34 g/dl (33.0-37.0); MEAN PLATELET VOLUME 10.9 fl (7.4-10.4); MONO # 0.6 (0.1-0.6); PLATELET COUNT 373 K/mm3 (130-400); RED BLOOD COUNT 4.82 M/mm3 (4.10-5.30); REDCELL DISTRIBUTION WIDTH-CV 13.8 % (11.5-14.5)
[2020-03-10 09:20] LABS: COLLECTION METHOD CLEAN CATCH
[2020-03-10 09:22] LABS: ALANINE AMINOTRANSFERASE 50 U/L (4-34); ALBUMIN 4.2 gm/dL (3.5-5.0); ALKALINE PHOSPHATASE 81 U/L (50-136); ANION GAP 5 mmol/L (7-16); AST,SGOT 29 U/L (15-37); BILIRUBIN,TOTAL 0.6 mg/dL (0.0-1.0); BLOOD UREA NITROGEN 8 mg/dL (7-17); CALCIUM 8.8 mg/dL (8.4-10.2); CARBON DIOXIDE 29 mmol/L (22-30); CHLORIDE 105 mmol/L (98-107); CREATININE, serum 0.73 (0.52-1.25); GLUCOSE 101 mg/dL (74-106); POTASSIUM 3.5 mmol/L (3.4-5.0); SODIUM 139 mmol/L (137-145); TOTAL PROTEIN 7.3 gm/dL (6.4-8.2)
[2020-03-10 09:28] LABS: C-REACTIVE PROTEIN < 0.5 mg/dL (0.0-0.9)
[2020-03-10 09:29] LABS: MUCOUS Present /lpf; PH 7 (5-8); SQUAMOUS EPITHELIAL 0-2 /hpf; URINE APPEARANCE Hazy; URINE BACTERIA Rare /hpf; URINE BILIRUBIN Negative (NEGATIVE); URINE BLOOD Negative (NEGATIVE); URINE COLOR Yellow; URINE GLUCOSE Negative (NEGATIVE); URINE KETONE Negative (NEGATIVE); URINE LEUKOCYTE ESTERASE Negative (NEGATIVE); URINE NITRATE Negative (NEGATIVE); URINE PROTEIN(semi-quant) 1+ (NEGATIVE); URINE RBC 0-2 /hpf
[2020-03-10 09:33] LABS: TROPONIN-I < 0.012 ng/mL (0.000-0.035)
[2020-03-10 10:20] LABS: TRICYCLIC ANTIDEPRESS URINE NEGATIVE
[2020-03-10] MEDS ORDERED: MEDROL 4MG DOSPA4 MG PO (10:58)
[2020-03-10] MEDS ORDERED: FLEXERIL 1010 MG/TAB PO (10:58)
[2020-03-10 11:00] VITALS: BP 149/90; PULSE 81
== END 2020-03-10 11:05 | disposition home or self-care (01) ==
LOC: COL.ER 08:25
PROVIDERS: Physician Assistant
DX: M54.12 Radiculopathy, cervical region (principal); M54.6 Pain in thoracic spine; I10 Essential (primary) hypertension; F17.210 Nicotine dependence, cigarettes, uncomplicated; Z20.828 Contact with and (suspected) exposure to other viral communicable diseases; Z90.710 Acquired absence of both cervix and uterus; Z90.49 Acquired absence of other specified parts of digestive tract; Z88.6 Allergy status to analgesic agent
CPT/HCPCS: J1885; J2060; J2550; J7030

== ENCOUNTER 2020-07-12 05:26 | Emergency (ER) | payer SELFPAY ==
[~2020-07-12] VITALS: Ht 162.6 cm; Wt 81.8 kg
[~2020-07-12 05:26] MED LIST changes: +MEDROL 4MG DOSPA4 MG PO
[2020-07-12 05:27] VITALS: TEMP 98.2
[2020-07-12 05:49] LABS: COLLECTION METHOD CLEAN CATCH
[2020-07-12 05:55] LABS: MUCOUS Present /lpf; PH 6 (5-8); URINE APPEARANCE Hazy; URINE BACTERIA None Seen /hpf; URINE BILIRUBIN Negative (NEGATIVE); URINE BLOOD Negative (NEGATIVE); URINE COLOR Yellow; URINE GLUCOSE Negative (NEGATIVE); URINE KETONE Negative (NEGATIVE); URINE LEUKOCYTE ESTERASE Negative (NEGATIVE); URINE NITRATE Negative (NEGATIVE); URINE PROTEIN(semi-quant) Negative (NEGATIVE); URINE RBC 0-2 /hpf; URINE WBC 0-2 /hpf
[2020-07-12] MEDS ORDERED: ROBAXIN 50500 MG/TAB PO (07:41)
[2020-07-12] MEDS ORDERED: TYLENOL 325MG325 MG PO (07:41)
[2020-07-12] MEDS ORDERED: MOTRIN 400400 MG/TAB PO (07:41)
[2020-07-12 07:55] VITALS: BP 161/118; PULSE 112
== END 2020-07-12 07:55 | disposition home or self-care (01) ==
LOC: COL.ER 05:26
PROVIDERS: Emergency Medicine
DX: M54.5 Low back pain (principal); Z88.6 Allergy status to analgesic agent
CPT/HCPCS: J1885; J2060; J8540

== ENCOUNTER 2020-09-29 09:18 | Emergency (ER) | payer SELFPAY ==
[~2020-09-29] VITALS: Ht 162.6 cm; Wt 79.5 kg
[~2020-09-29 09:18] MED LIST changes: +MOTRIN 400400 MG/TAB PO; +ROBAXIN 50500 MG/TAB PO; +TYLENOL 325MG325 MG PO
[2020-09-29 09:21] VITALS: BP 162/101; TEMP 97.4
[2020-09-29] MEDS ORDERED: PEN-VEE K500 MG PO (09:34)
[2020-09-29 10:00] VITALS: PULSE 89
== END 2020-09-29 10:00 | disposition home or self-care (01) ==
LOC: COL.ER 09:18
DX: K08.89 Other specified disorders of teeth and supporting structures (principal); F17.210 Nicotine dependence, cigarettes, uncomplicated; Z88.6 Allergy status to analgesic agent

== ENCOUNTER 2021-04-09 15:58 | Emergency (ER) | payer SELFPAY ==
[~2021-04-09] VITALS: Ht 162.6 cm; Wt 81.8 kg
[2021-04-09 16:50] LABS: COLLECTION METHOD CLEAN CATCH
[2021-04-09 16:56] LABS: BASO # 0.1 K/mm3 (0.0-0.2); BASO % 0.6 % (0.0-2.0); EOS # 0.1 K/mm3 (0.0-0.7); EOS % 0.7 % (0-4.0); GRAN # 7.4 K/mm3 (1.4-6.5); GRAN % 65.5 % (42.2-75.2); HEMATOCRIT 46.1 % (37.0-47.0); HEMOGLOBIN 15.7 g/dl (12.5-16.0); LYMPH # 2.8 K/mm3 (1.2-3.4); LYMPH % 24.8 % (20.0-51.0); MEAN CELL VOLUME 92 fl (80.0-100.0); MEAN CORPUSCULAR HEMOGLOBIN 31 pg (27.0-31.0); MEAN CORPUSCULAR HGB CONC 34 g/dl (33.0-37.0); MONO # 0.9 K/mm3 (0.1-0.6); MONO % 8.1 % (1.7-9.3); PLATELET COUNT 312 K/mm3 (130-400); RED BLOOD COUNT 5.02 M/mm3 (4.10-5.30); REDCELL DISTRIBUTION WIDTH-CV 14.7 % (11.5-14.5)
[2021-04-09 17:02] LABS: PH 6 (5-8); SQUAMOUS EPITHELIAL 0-2 /hpf; URINE APPEARANCE Hazy; URINE BACTERIA Many /hpf; URINE BILIRUBIN Negative (NEGATIVE); URINE BLOOD Negative (NEGATIVE); URINE COLOR Straw; URINE GLUCOSE Negative (NEGATIVE); URINE KETONE Negative (NEGATIVE); URINE LEUKOCYTE ESTERASE Negative (NEGATIVE); URINE NITRATE Negative (NEGATIVE); URINE PROTEIN(semi-quant) Negative (NEGATIVE); URINE RBC 0-2 /hpf; URINE UROBILINOGEN Negative (NEGATIVE)
[2021-04-09 17:05] LABS: ALANINE AMINOTRANSFERASE 52 U/L (0-55); ALBUMIN 4.7 gm/dL (3.5-5.0); ALKALINE PHOSPHATASE 73 U/L (40-150); ANION GAP 12 mmol/L (7-16); AST,SGOT 27 U/L (5-34); BILIRUBIN,TOTAL 0.6 mg/dL (0.2-1.2); BLOOD UREA NITROGEN 7 mg/dL (7-19); CALCIUM 9.4 mg/dL (8.4-10.2); CARBON DIOXIDE 22 mmol/L (22-29); CHLORIDE 103 mmol/L (98-107); CREATININE, serum 0.95 mg/dL (0.57-1.11); GLUCOSE 113 mg/dL (70-99); POTASSIUM 3.5 mmol/L (3.5-4.5); SODIUM 137 mmol/L (136-145); TOTAL PROTEIN 8.3 gm/dL (6.2-8.1)
[2021-04-09 17:14] LABS: TROPONIN-I < 0.010 ng/mL (0.00-0.033)
[2021-04-09 19:15] VITALS: BP 140/97; PULSE 80; TEMP 98.9
== END 2021-04-09 19:25 | disposition home or self-care (01) ==
LOC: COL.ER 15:58
PROVIDERS: Nurse Practitioner
DX: I10 Essential (primary) hypertension (principal); E05.00 Thyrotoxicosis with diffuse goiter without thyrotoxic crisis or storm; Z79.890 Hormone replacement therapy; Z79.899 Other long term (current) drug therapy

== ENCOUNTER 2021-04-10 08:22 | Emergency (ER) | payer SELFPAY ==
[~2021-04-10] VITALS: Ht 162.6 cm; Wt 81.8 kg
[2021-04-10 08:30] VITALS: TEMP 98.9
[2021-04-10 09:17] VITALS: BP 137/97; PULSE 90
== END 2021-04-10 09:27 | disposition home or self-care (01) ==
LOC: COL.ER 08:22
DX: F41.0 Panic disorder [episodic paroxysmal anxiety] (principal); E03.9 Hypothyroidism, unspecified; Z20.822 Contact with and (suspected) exposure to COVID-19; Z79.890 Hormone replacement therapy; Z79.899 Other long term (current) drug therapy

== ENCOUNTER 2021-05-09 12:06 | Emergency (ER) | payer SELFPAY ==
[~2021-05-09] VITALS: Ht 162.6 cm; Wt 84.1 kg
[2021-05-09 13:20] VITALS: TEMP 98.2
[2021-05-09 14:33] LABS: COLLECTION METHOD CLEAN CATCH
[2021-05-09 14:38] LABS: BASO # 0.1 K/mm3 (0.0-0.2); BASO % 0.5 % (0.0-2.0); EOS # 0.1 K/mm3 (0.0-0.7); EOS % 0.5 % (0-4.0); GRAN # 6.3 K/mm3 (1.4-6.5); GRAN % 66.1 % (42.2-75.2); HEMATOCRIT 41.8 % (37.0-47.0); HEMOGLOBIN 14.3 g/dl (12.5-16.0); LYMPH # 2.4 K/mm3 (1.2-3.4); LYMPH % 24.8 % (20.0-51.0); MEAN CELL VOLUME 92 fl (80.0-100.0); MEAN CORPUSCULAR HEMOGLOBIN 32 pg (27.0-31.0); MEAN CORPUSCULAR HGB CONC 34 g/dl (33.0-37.0); MEAN PLATELET VOLUME 10.6 fl (7.4-10.4); MONO # 0.8 K/mm3 (0.1-0.6); MONO % 7.8 % (1.7-9.3); PLATELET COUNT 273 K/mm3 (130-400); RED BLOOD COUNT 4.54 M/mm3 (4.10-5.30); REDCELL DISTRIBUTION WIDTH-CV 13.9 % (11.5-14.5)
[2021-05-09 14:47] LABS: PH 6 (5-8); SQUAMOUS EPITHELIAL 0-2 /hpf (0-10); URINE APPEARANCE Clear (CLEAR/HAZY); URINE BACTERIA Rare (NONE SEEN); URINE BILIRUBIN Negative (NEGATIVE); URINE BLOOD 1+ (NEGATIVE); URINE COLOR Straw (YELLOW); URINE GLUCOSE Negative (NEGATIVE); URINE KETONE Negative (NEGATIVE); URINE LEUKOCYTE ESTERASE Negative (NEGATIVE); URINE NITRATE Negative (NEGATIVE); URINE PROTEIN(semi-quant) Negative (NEGATIVE); URINE RBC 0-2 /hpf (0-2); URINE UROBILINOGEN Negative (NEGATIVE)
[2021-05-09 14:59] LABS: ALANINE AMINOTRANSFERASE 66 U/L (0-55); ALBUMIN 4.1 gm/dL (3.5-5.0); ALKALINE PHOSPHATASE 80 U/L (40-150); ANION GAP 10 mmol/L (7-16); AST,SGOT 26 U/L (5-34); BILIRUBIN,TOTAL 0.4 mg/dL (0.2-1.2); BLOOD UREA NITROGEN 7 mg/dL (7-19); CALCIUM 8.8 mg/dL (8.4-10.2); CARBON DIOXIDE 22 mmol/L (22-29); CHLORIDE 107 mmol/L (98-107); CREATININE, serum 0.78 mg/dL (0.57-1.11); GLUCOSE 94 mg/dL (70-99); POTASSIUM 3.4 mmol/L (3.5-4.5); SODIUM 139 mmol/L (136-145); TOTAL PROTEIN 7.2 gm/dL (6.2-8.1)
[2021-05-09 15:01] LABS: ACETAMINOPHEN < 1.0 ug/mL (10-30); ALCOHOL(ethanol),MEDICAL < 10 mg/dL (0-10); SALICYLATE < 5.0 mg/dL (15.0-30.0)
[2021-05-09 15:03] LABS: TRICYCLIC ANTIDEPRESS URINE NEGATIVE
[2021-05-09 19:20] VITALS: BP 159/99; PULSE 99
== END 2021-05-09 19:27 | disposition home or self-care (01) ==
LOC: COL.ER 12:06
PROVIDERS: Physician Assistant
DX: F32.A Depression, unspecified (principal); R45.851 Suicidal ideations; E89.0 Postprocedural hypothyroidism; I10 Essential (primary) hypertension; Z79.890 Hormone replacement therapy; Z20.822 Contact with and (suspected) exposure to COVID-19; Z79.899 Other long term (current) drug therapy

== ENCOUNTER 2021-05-31 15:51 | Emergency (ER) | payer SELFPAY ==
[~2021-05-31] VITALS: Ht 162.6 cm; Wt 81.8 kg
--- NOTE | 2021-05-31 16:45 | NUR ---
Licensed Physical Therapist Assistant met with patient in response to ED consult for patient interested in drug/alcohol rehab. SW met with patient and provided resources. Patient states she had a [facility] assessment last Saturday and has been calling detox facilities. SW encouraged patient to continue calling facilities and highlighted the [facility] number for patient to follow up with. Patient is tearful and SW offered emotional support. SW updated ED provider.
[2021-05-31] MEDS ORDERED: PHENERGAN 25 TA25 MG PO (17:39)
[2021-05-31 18:20] VITALS: BP 121/69; PULSE 99; TEMP 97.9
== END 2021-05-31 18:20 | disposition home or self-care (01) ==
LOC: COL.ER 15:51
DX: F11.23 Opioid dependence with withdrawal (principal); E03.9 Hypothyroidism, unspecified; Z79.890 Hormone replacement therapy
CPT/HCPCS: J1885

== ENCOUNTER 2021-06-02 11:36 | Emergency (ER) | payer SELFPAY ==
[~2021-06-02] VITALS: Ht 162.6 cm; Wt 81.8 kg
[2021-06-02 11:51] VITALS: TEMP 98.3
[2021-06-02 12:21] LABS: BASO # 0.1 K/mm3 (0.0-0.2); BASO % 0.5 % (0.0-2.0); EOS # 0.2 K/mm3 (0.0-0.7); EOS % 1.9 % (0.0-4.0); GRAN # 5.5 K/mm3 (1.4-6.5); GRAN % 60.1 % (42.2-75.2); HEMATOCRIT 39.9 % (37.0-47.0); HEMOGLOBIN 13.6 g/dl (12.5-16.0); LYMPH # 2.6 K/mm3 (1.2-3.4); LYMPH % 27.7 % (20.0-51.0); MEAN CELL VOLUME 91 fl (80.0-100.0); MEAN CORPUSCULAR HEMOGLOBIN 31 pg (27-31); MEAN CORPUSCULAR HGB CONC 34 g/dl (33.0-37.0); MEAN PLATELET VOLUME 10.2 fl (7.4-10.4); MONO # 0.9 K/mm3 (0.1-0.6); MONO % 9.5 % (1.7-9.3); PLATELET COUNT 319 K/mm3 (130-400); RED BLOOD COUNT 4.39 M/mm3 (4.10-5.30)
[2021-06-02 12:46] LABS: ALANINE AMINOTRANSFERASE 51 U/L (0-55); ALBUMIN 4.1 gm/dL (3.5-5.0); ALKALINE PHOSPHATASE 74 U/L (40-150); ANION GAP 10 mmol/L (7-16); AST,SGOT 17 U/L (5-34); BILIRUBIN,TOTAL 0.3 mg/dL (0.2-1.2); BLOOD UREA NITROGEN 12 mg/dL (7-19); CALCIUM 8.7 mg/dL (8.4-10.2); CARBON DIOXIDE 25 mmol/L (22-29); CHLORIDE 107 mmol/L (98-107); GLUCOSE 94 mg/dL (70-99); POTASSIUM 3.5 mmol/L (3.5-4.5); SODIUM 142 mmol/L (136-145); TOTAL PROTEIN 7.1 gm/dL (6.2-8.1)
[2021-06-02 12:59] LABS: TROPONIN-I < 0.010 ng/mL (0.00-0.033)
[2021-06-02 13:07] VITALS: BP 130/81; PULSE 79
== END 2021-06-02 13:12 | disposition home or self-care (01) ==
LOC: COL.ER 11:36
PROVIDERS: Emergency Medicine
DX: R07.9 Chest pain, unspecified (principal); E03.9 Hypothyroidism, unspecified; Z20.822 Contact with and (suspected) exposure to COVID-19; Z79.890 Hormone replacement therapy

== ENCOUNTER 2022-08-19 08:48 | Emergency (ER) | payer SELFPAY ==
[~2022-08-19] VITALS: Ht 157.5 cm; Wt 86.4 kg
[2022-08-19 09:37] LABS: BASO % 0.5 % (0.0-2.0); EOS # 0.1 K/mm3 (0.0-0.7); GRAN # 6.1 K/mm3 (1.4-6.5); GRAN % 70.4 % (42.2-75.2); HEMATOCRIT 44.6 % (37.0-47.0); HEMOGLOBIN 15.6 g/dl (12.5-16.0); LYMPH # 1.7 K/mm3 (1.2-3.4); MEAN CELL VOLUME 91 fl (80.0-100.0); MEAN CORPUSCULAR HEMOGLOBIN 32 pg (27-31); MEAN CORPUSCULAR HGB CONC 35 g/dl (33.0-37.0); MEAN PLATELET VOLUME 10.4 fl (7.4-10.4); MONO # 0.7 K/mm3 (0.1-0.6); MONO % 7.8 % (1.7-9.3); PLATELET COUNT 310 K/mm3 (130-400); RED BLOOD COUNT 4.93 M/mm3 (4.10-5.30); REDCELL DISTRIBUTION WIDTH-CV 14.4 % (11.5-14.5)
[2022-08-19 09:50] LABS: ALBUMIN 3.9 gm/dL (3.5-5.0); CALCIUM 9.1 mg/dL (8.4-10.2); CREATININE, serum 0.78 mg/dL (0.57-1.11); POTASSIUM 3.6 mmol/L (3.5-4.5); TOTAL PROTEIN 7.6 gm/dL (6.2-8.1)
[2022-08-19 10:15] LABS: BILIRUBIN,TOTAL 0.6 mg/dL (0.2-1.2)
[2022-08-19] MEDS ORDERED: ZOFRAN 4MG T4 MG/TAB PO (11:32)
[2022-08-19] MEDS ORDERED: BENTYL 20MG20 MG/TAB PO (11:32)
[2022-08-19 11:48] VITALS: BP 148/80; PULSE 86; TEMP 98.3
== END 2022-08-19 11:50 | disposition home or self-care (01) ==
LOC: COL.ER 08:48
PROVIDERS: Emergency Medicine
DX: R10.31 Right lower quadrant pain (principal); R11.2 Nausea with vomiting, unspecified; Z28.310 Unvaccinated for COVID-19; Z90.710 Acquired absence of both cervix and uterus; Z90.49 Acquired absence of other specified parts of digestive tract
CPT/HCPCS: J1200; J1885; J2765; J7120; Q9967

== ENCOUNTER 2023-12-03 06:52 | Day surgery (SDC) | payer BC ==
[~2023-12-03] VITALS: Ht 162.6 cm; Wt 90.6 kg
[2023-12-03] MEDS ORDERED: TYLENOL 500MG500 MG PO (07:38)
[2023-12-03] MEDS ORDERED: BUSPAR10 MG PO (07:39)
[2023-12-03] MEDS ORDERED: LEXAPRO20 MG PO (07:39)
[2023-12-03] MEDS ORDERED: ZESTRIL 20MG TA20 MG PO (07:39)
[2023-12-03 07:43] VITALS: BP 145/93; PULSE 87; TEMP 97.1
--- NOTE | 2023-12-03 09:02 | NUR ---
Patient to procedure,report to Gopal Stoddard.
--- NOTE | 2023-12-03 09:28 | NUR ---
Please see merge documentation for record of interventions, vitals and medications administered during loop removal with DR. Morris
[2023-12-03] MEDS ORDERED: NS 250 ML IV.SOLN. IR SCH (09:32)
[2023-12-03] MEDS ORDERED: Midazolam 2 MG/2 ML VIAL IV SCH (09:35)
[2023-12-03] MEDS ORDERED: fentaNYL 50 MCG/ML 2 ML VIAL IV SCH (09:36)
[2023-12-03 09:50] VITALS: BP 113/78; PULSE 77
--- NOTE | 2023-12-03 09:51 | NUR ---
Elizabeth is transferred back to 14 in the express unit after loop removal with Dr. Morris. She tolerated procedure with no problem. She is relaxed, awake and alert, pwd with reg and unlabored resps. dressing to loop excision site is clean and dry, area surrounding incision is soft. bs report and handoff of care to Kami SCHMITT.
[2023-12-03 10:00] VITALS: BP 110/76; PULSE 77
[2023-12-03 10:15] VITALS: BP 105/78; PULSE 78
[2023-12-03 10:30] VITALS: BP 99/63; PULSE 79
[2023-12-03] MEDS ORDERED: CEPHALEXIN500 M1 PO (10:39)
[2023-12-03 10:45] VITALS: BP 109/65; PULSE 76
--- NOTE | 2023-12-03 10:58 | NUR ---
Dressing to right upper chest observed clean,dry,and intact.Discharge instructions given to pt.Pt verbalizes understanding.
--- NOTE | 2023-12-03 11:10 | NUR ---
Pt escortedout via wheelchair by this nurse.
== END 2023-12-03 12:19 ==
LOC: COL.CAR 06:52
DX: Z45.09 Encounter for adjustment and management of other cardiac device (principal); I10 Essential (primary) hypertension; I47.10 Supraventricular tachycardia, unspecified; F17.210 Nicotine dependence, cigarettes, uncomplicated; E66.9 Obesity, unspecified; Z68.36 Body mass index [BMI] 36.0-36.9, adult; Z98.890 Other specified postprocedural states
CPT/HCPCS: J0690; J2250; J3010; J7050